=== PATIENT | male | born 1935 | race Caucasian/White ===

== ENCOUNTER → 2018-03-19 | Outpatient (CLI) | payer OTHER ==
[~2018-03-19] MED LIST: ASPIR 8181 MG PO; ASPIRIN325 PO; ATENOLOL 25MG T25 M1 PO; AVALIDE 300-121 EACH PO; BACLOFEN 10MG T10 MG PO; BENTYL 20 MG TA20 M1 PO; CIPROFLOXACIN500 M1 PO; CITRATE OF MAG296 ML PO; COLACE100 MG PO; CRESTOR10 MG PO; FISH OIL 1,2001 EAC3 PO; GLUCOPHAGE XR750 MG PO; GLUCOSAMIN-CHO1 EACH PO; IBUPROFEN 800800 M1 PO; MOBIC15 MG PO; NABUMETONE 500500 M1 PO; NAPROSYN500 MG PO; PRILOSEC 20 MG20 MG PO; SKELAXIN 800 M800 M1 PO; TRAMADOL 50 MG50 MG PO; ZOFRAN ODT4 MG PO
== END ==
LOC: ULTRA 09:51
DX: M79.605 Pain in left leg (principal); M79.89 Other specified soft tissue disorders

== ENCOUNTER → 2018-12-23 | Outpatient (CLI) | payer OTHER ==
[~2018-12-23] VITALS: Ht 188 cm; Wt 152.0 kg
[~2018-12-23] MED LIST changes: +VITAMIN D31000 UNIT PO; +XARELTO20 MG PO
--- NOTE | ~2018-12-23 | HPC ---
[facility] [address] [place] [address] PAIN MANAGEMENT CONSULTATION Name: JUSTYNA SEE Room #: REG CL Abel.#: [id number] Admission: 12/23/18 ������������������ Attend Phys: Julian Salamanca DO Discharge: ������������������ Date of : 36 Report #: [id number] THIS REPORT FOR: //name// CC: Julian Tatum MD DATE OF SERVICE: 12/23/2018 REFERRING PHYSICIAN: Dr. Abiel Tatum CHIEF COMPLAINT: Low back pain, left lower extremity pain. HISTORY OF PRESENT ILLNESS: As you know, the patient is an 83-year-old male who returns today in followup visit indicating pain level of 0/10 at present, but up to 5/10. He indicates pain begins in his low back, radiates to his left buttock down his posterolateral thigh, but above the knee. He states his pain is chronic in nature, began approximately 4-5 months ago. Describes the pain as dull, intermittent, tightening and aching. It tends to be positional in nature, exacerbated with standing still for any length of time or walking long distances, improves with repositioning. He returns today in followup visit to discuss options for treatment. As you are aware, the patient underwent intra-articular facet joint injections on the right, which provided improvement in his right low back symptoms. He returns to discuss options for treatment today in regards to left low back, buttock, and posterolateral thigh pain. ALLERGIES: PENICILLIN AND BACTRIM. CURRENT MEDICATIONS: Irbesartan/hydrochlorothiazide 300/12.5 mg once a day, lovastatin 10 mg per day, omega-3 fish oil 1 tab per day, atenolol 25 mg p.o. at bedtime, metformin 750 mg twice a day, tramadol 50 mg every 8 hours, Xarelto 20 mg once a day, cholecalciferol 1000 units per day. SOCIAL HISTORY: The patient denies tobacco, alcohol, IV or illicit drug use. He is a retired field engineer, he retired years ago. He is accompanied by his present in room today. IMAGING DATA: No new imaging available. PQRS: The patient has known osteoarthritic changes of the bilateral knees and lumbar spine, no rheumatoid arthritis. He is placing pain intensity 0/10 up to 5/10. He is not a fall risk, has not had a fall in the last 3 months. He is on blood thinners in the form of Xarelto. He is treated for hypertension. He is not on opioids. He is placing pain impact score at approximately 35/70 indicating moderate interference of daily activities secondary to pain. [address] [address] PAIN MANAGEMENT CONSULTATION Name: JUSTYNA SEE QUINTON Room #: REG CLI Nida#: [id number] Admission: 12/23/18 ������������������ Attend Phys: Julian Salamanca DO Discharge: ������������������ Date of : 36 Report #: [id number] PHYSICAL EXAMINATION: VITAL SIGNS: Blood pressure 164/68, pulse 67, respiratory rate 16 and unlabored. The patient is 97% on room air, height 6 feet 2 inches tall, weight 335 pounds, BMI calculated 43.0. GENERAL: Well-developed, well-nourished, well-hydrated, morbidly obese 83-year-old male appearing stated age, placing current pain score around 0-5/10 depending on activity. HEENT: Normocephalic, atraumatic. Pupils equal, round, reactive to light. Extraocular muscles are intact. Sclerae nonicteric without injection. NEUROLOGIC: Cranial nerves 2-12 grossly intact. Speech is fluent. The patient deemed an excellent historian. EXTREMITIES: Show no clubbing, no cyanosis, and no edema. MUSCULOSKELETAL: There is some palpatory tenderness over the paraspinal musculature of lower lumbar spine, no spinous process tenderness. Seated straight leg raising negative. Supine straight leg raising is only positive for low back symptoms. No radicular component. Ankle clonus negative. Babinski is negative. Muscle bulk and tone is symmetrical in comparing left lower extremity to right. Lumbar provocation testing met with increasing axial back pain, no radiation of symptoms. ASSESSMENT: 1. Lumbosacral spondylosis without radiculopathy. 2. Mild displacement of lumbar intervertebral disk. 3. Chronic intractable pain. PLAN: 1. The patient returns today in followup visit complaining of low back pain and lower extremity pain. It does not appear that he is experiencing lumbar radicular symptoms, though his symptomology does have some radiation pattern leaving the low back to the buttock and posterolateral thigh but nondermatomal in its distribution. It appears that he is suffering again from facet arthropathy symptoms related to the low back. We addressed his right side in the past and discussed the possibility of having him look towards other treatment options to address axial back symptoms secondary to facet arthropathy. The following was discussed with the patient today: We discussed physical therapy, stretching exercise, core strengthening and a concerted effort at weight loss. This would significantly improve the patient's overall pain. We discussed with the patient's medication management utilizing anti-inflammatories on an as needed basis and the possible addition of a more aggressive treatments that will help with ongoing pain issues. We discussed facet injections in the lumbar spine, for which the patient would have to discontinue his Xarelto in preparation to undergo. We also discussed surgical options, though I do not feel at this point that is necessary. After reviewing the risks and benefits of all proposed treatment options, the patient chose a more conservative route. He wishes to trial physical therapy exercise routine, weight loss and anti-inflammatories. He is indicating his pain has improved and [facility] [address] [place] [address] PAIN MANAGEMENT CONSULTATION Name: JUSTYNA SEE Room #: REG CLI Nida#: [id number] Admission: 12/23/18 ������������������ Attend Phys: Julian Salamanca DO Discharge: ������������������ Date of : 36 Report #: [id number] thus he does not wish to be more aggressive at this juncture. He wishes to trial conservative treatment initially. When the patient made his appointment, his pain was a level of 5/10, but now it is down to a 0/10. He wishes to delay interventional treatments or any changes in therapy until which time his pain intensifies or returns. 2. We will see the patient back in followup visit on an as needed basis. We are pleased to see the patient's pain is doing well. We wish him luck with the physical therapy, stretching exercises and weight loss. If he does wish to look towards interventional treatments. He will need to come off his Xarelto for 3 days in preparation for that and potential treatment. If he wishes to do so, he can contact the clinic, will help him determine what day he can be seen, so we can adjust his Xarelto appropriately. He will need to gain clearance from the prescribing physician to come off the Xarelto. ��������������������������������������������� ���������������������������������������� By: ��������������������������������������������� [id number] Julian Salamanca DO /nt
[2018-12-23 11:19] VITALS: BP 164/68
--- NOTE | 2018-12-23 11:43 | NUR ---
Pain Clinic Assessment: 1. History of Osteoarthritis: LOW BACK B/L KNEE'S History of Rheumatoid Arthritis: Not Applicable 2. Height: 6 ft. 2 in. 188.0 cm. Weight: 335.0 lb. oz. 151.956 kg. Patient's BMI: 43.0 3. Vital Signs: BP: 164/68 Pulse: 67 Resp: 16 Temp: 02 Sat: 97 ECG Mon: 4. Pain Intensity: 0-IN BACK NOW, 5-WHEN HAS 5. Fall Risk: Dizziness: Needs help standing or walking: Fallen in the last 3 months: Fall risk comments: 6. Patient on Blood Thinner: XARELTO 7. History of Hypertension: Y 8. Opioid Therapy greater than 6 weeks: N Opiate Contract Signed: 9. Risk Assessment Tool Provided: 10. Functional Assessment Tool: 11. Recreational Drug Use: Never Drug Type: Tobacco Use: Never Smoker Tobacco Type: Amount or Packs/day: How Many Years: Alcohol Use: Yes Frequency: Quant:
== END ==
LOC: PAIN 12-17 07:40
DX: M54.5 Low back pain (principal); M79.652 Pain in left thigh; Z72.89 Other problems related to lifestyle; Z79.899 Other long term (current) drug therapy

== ENCOUNTER → 2019-01-13 | Outpatient (CLI) | payer OTHER ==
[~2019-01-13] VITALS: Ht 188 cm; Wt 151.5 kg
--- NOTE | ~2019-01-13 | HPC ---
[facility] [place] [address] PAIN MANAGEMENT CONSULTATION Name: JUSTYNA SEE Room #: REG CLEdmar LiaoFlorencioGregoryFlorencio#: [id number] Admission: 01/13/19 ������������������ Attend Phys: Julian Salamanca DO Discharge: ������������������ Date of : 36 Report #: [id number] THIS REPORT FOR: //name// CC: Julian Tatum MD DATE OF SERVICE: 01/13/2019 REFERRING PHYSICIAN: Abiel Tatum M.D. CHIEF COMPLAINT: Axial back pain. HISTORY OF PRESENT ILLNESS: As you know, the patient is a very pleasant 83-year-old male with longstanding history of low back pain that radiates to the upper buttock area. The patient indicates pain has been present for an extended period of time. He states pain level today of a 5-6/10. He returns today in followup visit having discontinued his anticoagulant, Xarelto in preparation for bilateral L4-L5, L5-S1 intra-articular facet injections to address axial back pain due to facet arthropathy. ALLERGIES: PENICILLIN and BACTRIM. CURRENT MEDICATIONS: Irbesartan-hydrochlorothiazide, lovastatin, omega 3 fish oil, atenolol, metformin, tramadol, Xarelto and cholecalciferol. SOCIAL HISTORY: The patient denies tobacco, alcohol or IV or illicit drug use. He is a retired component engineer, retired years ago, unaccompanied today. IMAGING DATA: No new imaging available. PQRS: The patient has known osteoarthritic changes of the bilateral knees and lumbar spine and no rheumatoid arthritis. He is placing pain intensity today 5-6/10. He is not a fall risk, has not had a fall in the last 3 months. He is on a blood thinner in the form of Xarelto but has discontinued this in preparation for today's procedure. He is treated for hypertension. He is not on chronic opioids. He is placing pain impact score at 36/70, indicating moderate interference of daily activities secondary to pain. PHYSICAL EXAMINATION: VITAL SIGNS: Blood pressure 157/67, pulse 72 and respiratory rate 18 and unlabored. The patient is 100% on room air. Height 6 feet 2 inches tall, weight 334 pounds and BMI calculated 42.9. GENERAL: Well-developed, well-nourished, well-hydrated, morbidly obese 83-year-old male. He appears stated age. He is placing pain score today at 5-6/10. [address] [address] PAIN MANAGEMENT CONSULTATION Name: JUSTYNA SEE Room #: REG CLI AbelFlorencio#: [id number] Admission: 01/13/19 ������������������ Attend Phys: Julian Salamanca DO Discharge: ������������������ Date of : 36 Report #: [id number] HEENT: Normocephalic and atraumatic. Pupils equal, round and reactive to light. Extraocular muscles are intact. Sclerae nonicteric, without injection. EXTREMITIES: Show no clubbing, no cyanosis and no edema. MUSCULOSKELETAL: Lower extremity strength appears equal and symmetrical 5/5, muscle bulk and tone equal and symmetrical when comparing left lower extremity to right. Seated straight leg raising negative. Supine straight leg raising negative. Maurisio's test negative. Modified Gaenslen's positive for axial low back pain. Ankle clonus negative. Babinski is negative. ASSESSMENT: 1. Lumbosacral spondylosis without radiculopathy. 2. Mild displacement of the lumbar intervertebral, no radiculopathy. 3. Chronic intractable pain. PLAN: 1. The patient returns today in followup visit having discontinued his Xarelto in preparation for bilateral L4-L5, L5-S1 intra-articular facet injections to address lumbar facet arthropathy. The patient and I had a long discussion today about the risks and benefits of the procedure. He states he understood and did wish to proceed. 2. No medication changes made at today's visit. The patient will continue current medical therapy as previously prescribed. 3. We will see the patient back in followup visit on an as needed basis, possible next in the series of lumbar epidural injections. ��������������������������������������������� ���������������������������������������� By: ��������������������������������������������� [id number] Julian Salamanca DO /nt
--- NOTE | ~2019-01-13 | HPC ---
[address] [place] [address] PAIN MANAGEMENT CONSULTATION Name: JUSTYNA SEE Room #: REG CLI Ellyn.#: [id number] Admission: 01/13/19 ������������������ Attend Phys: Julian Salamanca DO Discharge: ������������������ Date of : 36 Report #: [id number] THIS REPORT FOR: //name// CC: Julian Tatum ____ ____ PROCEDURE NOTE PROCEDURE PERFORMED BY: Julian Salamanca DO. PREPROCEDURAL DIAGNOSIS: Lumbosacral spondylosis without radiculopathy. POSTPROCEDURAL DIAGNOSES: Lumbosacral spondylosis without radiculopathy. DESCRIPTION OF PROCEDURE: Bilateral L4-L5 and L5-S1 intra-articular facet injections under fluoroscopic guidance. This is the first procedure of the first series that the patient is undergoing. After obtaining written consent, the patient was taken back to the fluoroscopy suite and placed in a prone position with a pillow under the abdomen to decrease the lumbar lordosis and to facilitate needle entry into the facet joints. The skin overlying the lumbosacral area was prepped and draped in an aseptic fashion. AP and lateral fluoroscopic imaging was obtained. Optimal position of the fluoroscope occurred when the joint line was first visualized. The facet joints were identified radiographically directed adjacent to the superior articular process of the caudad vertebrae. The skin overlying the target sites of injection was anesthetized using 3 mL of 1% lidocaine. A 22-gauge 3-1/2 inch spinal needle with a bent tip was advanced towards the L4-L5, L5-S1 facet joints on the right and left sides under fluoroscopic guidance. The firm posterior capsule had its characteristic feel and the needle was advanced a few additional millimeters beyond the joint capsule into the joint space, but not into the articular cartilage. After the joint space was entered and aspiration was negative for heme or CSF, 0.2 mL of Omnipaque was injected demonstrating a characteristic facet arthrogram. After negative aspiration for heme or CSF, 1.5 mL of solution containing 1 mL of 40 mg per mL, 40 mg of total triamcinolone and 0.5 mL bupivacaine 0.5% was slowly injected at each of 4 facets. The needle was then removed. There were no apparent complications. The patient tolerated the procedure well and was carefully escorted to the recovery room in stable condition. The [address] [address] PAIN MANAGEMENT CONSULTATION Name: JUSTYNA SEE QUINTON Room #: REG NAMAN Alva#: [id number] Admission: 01/13/19 ������������������ Attend Phys: Julian Salamanca DO Discharge: ������������������ Date of : 36 Report #: [id number] was 5/6 before the procedure and 0/10 ten minutes after the procedure. After meeting discharge criteria, the patient was discharged home. ��������������������������������������������� ���������������������������������������� By: ��������������������������������������������� [id number] Julian Salamanca, /nt
[2019-01-13 07:40] VITALS: BP 157/67
--- NOTE | 2019-01-13 07:59 | NUR ---
Pain Clinic Assessment: 1. History of Osteoarthritis: Left Lower Extremity Right Lower Extremity Left Upper Extremity Right Upper Extremity History of Rheumatoid Arthritis: Not Applicable 2. Height: 6 ft. 2 in. 188.0 cm. Weight: 334.0 lb. oz. 151.502 kg. Patient's BMI: 42.9 3. Vital Signs: BP: 157/67 Pulse: 72 Resp: 18 Temp: 02 Sat: 100 ECG Mon: 4. Pain Intensity: 5-6 5. Fall Risk: Dizziness: N Needs help standing or walking: N Fallen in the last 3 months: N Fall risk comments: 6. Patient on Blood Thinner: XARELTO 7. History of Hypertension: Y 8. Opioid Therapy greater than 6 weeks: Opiate Contract Signed: 9. Risk Assessment Tool Provided: 10. Functional Assessment Tool: 11. Recreational Drug Use: Never Drug Type: Tobacco Use: Never Smoker Tobacco Type: Amount or Packs/day: How Many Years: Alcohol Use: Yes Frequency: Quant:
== END | disposition home or self-care (01) ==
LOC: PAIN 06:50
DX: M47.817 Spondylosis without myelopathy or radiculopathy, lumbosacral region (principal); M51.26 Other intervertebral disc displacement, lumbar region; G89.29 Other chronic pain; Z88.0 Allergy status to penicillin; Z88.8 Allergy status to other drugs, medicaments and biological substances; Z79.899 Other long term (current) drug therapy; Z79.01 Long term (current) use of anticoagulants; Z79.84 Long term (current) use of oral hypoglycemic drugs

== ENCOUNTER → 2019-05-14 | Outpatient (CLI) | payer OTHER | LOC: MRI 09:45 | DX: S80.01XA Contusion of right knee, initial encounter (principal); S83.241A Other tear of medial meniscus, current injury, right knee, initial encounter; M17.11 Unilateral primary osteoarthritis, right knee; X58.XXXA Exposure to other specified factors, initial encounter; Y93.89 Activity, other specified; Y92.89 Other specified places as the place of occurrence of the external cause; Y99.8 Other external cause status ==

== ENCOUNTER → 2019-06-09 | Outpatient (CLI) | payer OTHER | END | disposition home or self-care (01) | LOC: RAD 08:46 | DX: S80.01XA Contusion of right knee, initial encounter (principal); M25.461 Effusion, right knee; Z88.0 Allergy status to penicillin; Z88.2 Allergy status to sulfonamides; Z88.8 Allergy status to other drugs, medicaments and biological substances; Z79.899 Other long term (current) drug therapy; Z87.440 Personal history of urinary (tract) infections; Z98.890 Other specified postprocedural states; X58.XXXA Exposure to other specified factors, initial encounter; Y92.89 Other specified places as the place of occurrence of the external cause; Y99.8 Other external cause status; Y93.89 Activity, other specified ==

== ENCOUNTER → 2019-12-15 | Outpatient (CLI) | payer OTHER | LOC: SJCVC 09:16 | DX: I44.0 Atrioventricular block, first degree (principal); I25.10 Atherosclerotic heart disease of native coronary artery without angina pectoris; I48.0 Paroxysmal atrial fibrillation; I11.0 Hypertensive heart disease with heart failure; I50.32 Chronic diastolic (congestive) heart failure; E11.9 Type 2 diabetes mellitus without complications; E78.5 Hyperlipidemia, unspecified; Z95.1 Presence of aortocoronary bypass graft; F41.9 Anxiety disorder, unspecified; Z79.84 Long term (current) use of oral hypoglycemic drugs; Z79.02 Long term (current) use of antithrombotics/antiplatelets; Z79.899 Other long term (current) drug therapy; Z98.890 Other specified postprocedural states ==

== ENCOUNTER → 2020-06-15 | Outpatient (CLI) | payer OTHER | LOC: SJCVC 15:55 | PROVIDERS: ATTEND Internal Medicine | DX: I10 Essential (primary) hypertension (principal); E11.9 Type 2 diabetes mellitus without complications; I25.10 Atherosclerotic heart disease of native coronary artery without angina pectoris; I11.0 Hypertensive heart disease with heart failure; I50.32 Chronic diastolic (congestive) heart failure; I48.0 Paroxysmal atrial fibrillation; E78.5 Hyperlipidemia, unspecified ==

== ENCOUNTER → 2020-11-07 | Outpatient (CLI) | payer OTHER | LOC: SJCVCIMAG 09:47 | PROVIDERS: ATTEND Internal Medicine | DX: I49.1 Atrial premature depolarization (principal); I11.0 Hypertensive heart disease with heart failure; I50.32 Chronic diastolic (congestive) heart failure; I48.0 Paroxysmal atrial fibrillation; E78.5 Hyperlipidemia, unspecified; E11.9 Type 2 diabetes mellitus without complications; I25.10 Atherosclerotic heart disease of native coronary artery without angina pectoris; Z90.49 Acquired absence of other specified parts of digestive tract; Z95.1 Presence of aortocoronary bypass graft; Z88.8 Allergy status to other drugs, medicaments and biological substances; Z79.84 Long term (current) use of oral hypoglycemic drugs; Z79.899 Other long term (current) drug therapy ==

== ENCOUNTER → 2021-05-08 | Outpatient (CLI) | payer OTHER | LOC: SJCVC 13:00 | PROVIDERS: ATTEND Internal Medicine | DX: R94.31 Abnormal electrocardiogram [ECG] [EKG] (principal); I11.0 Hypertensive heart disease with heart failure; I50.32 Chronic diastolic (congestive) heart failure; I48.0 Paroxysmal atrial fibrillation; E78.5 Hyperlipidemia, unspecified; I25.10 Atherosclerotic heart disease of native coronary artery without angina pectoris; E11.9 Type 2 diabetes mellitus without complications; F41.9 Anxiety disorder, unspecified; Z79.899 Other long term (current) drug therapy; Z88.1 Allergy status to other antibiotic agents; Z88.2 Allergy status to sulfonamides; Z88.0 Allergy status to penicillin ==

== ENCOUNTER → 2021-11-08 | Outpatient (CLI) | payer OTHER | LOC: SJCVC 12:45 | PROVIDERS: ATTEND Internal Medicine | DX: R94.31 Abnormal electrocardiogram [ECG] [EKG] (principal); I25.10 Atherosclerotic heart disease of native coronary artery without angina pectoris; I50.32 Chronic diastolic (congestive) heart failure; I11.0 Hypertensive heart disease with heart failure; I48.0 Paroxysmal atrial fibrillation; E78.5 Hyperlipidemia, unspecified; I10 Essential (primary) hypertension; E11.9 Type 2 diabetes mellitus without complications; Z88.0 Allergy status to penicillin; Z88.2 Allergy status to sulfonamides; Z88.1 Allergy status to other antibiotic agents; Z95.1 Presence of aortocoronary bypass graft; Z79.84 Long term (current) use of oral hypoglycemic drugs; Z79.899 Other long term (current) drug therapy ==